=== PATIENT | female | born 1945 | race Caucasian/White ===

== ENCOUNTER 2017-06-05 09:56 | Day surgery (SDC) | payer MEDICARE, OTHER ==
[~2017-06-05 09:56] MED LIST: EPINEPHrine 1:10,000 1 MG/10 ML Syringe ONE; Lactated Ringers 1,000 ML IV SCH; Midazolam 1 MG/ML 2 ML SDV ONE; Propofol 200 MG/20 ML SDV ONE; Sodium Chloride 0.9% 5 ML Syringe FLUSH PRN
[2017-06-05] MEDS ORDERED: Propofol 200 MG/20 ML SDV ONE (10:19)
[2017-06-05] MEDS ORDERED: Midazolam 1 MG/ML 2 ML SDV IV ONE (10:53)
[2017-06-05] MEDS ORDERED: Propofol 200 MG/20 ML SDV IV ONE (10:53)
--- NOTE | 2017-06-05 11:29 | PCM.OPNOTE ---
- General Post-Op/Procedure Note Date of Surgery/Procedure: 06/05/17 Operative Procedure(s): Colonoscopy Findings: Long tortuous colon but negative colonoscopy. Pre Op Diagnosis: Rectal bleeding, abdominal pain and constipation Anesthesia Technique: MAC Primary Surgeon: Suzanna Londono Complications: None Condition: Good Free Text/Narrative:: INFORMED CONSENT: Patient is here today for elective colonoscopy. All aspects of this procedure have been discussed with the patient. All possible complications also, including possibility of perforation, infection, pain, bleeding and unknown complications. In the event of perforation patient may need to have abdominal exploration, colon resection, colostomy and even was discussed. Anesthetic complications were handled by anesthesia department. The patient understands fully well. Patient did not have any further questions for me at the end of my interview. The patient wishes for me to proceed. PREOPERATIVE DIAGNOSIS/INDICATIONS: [rectal bleeding, constipation and abdominal pain] POSTOPERATIVE DIAGNOSIS: [long tortuous colon, sigmoid colon diverticulosis, otherwise negative.] INSTRUMENT USED: Olympus videocolonoscope. ASA CLASSIFICATION: [2] ANESTHESIA: Continuous EKG, oximetry and intermittent blood pressure and respiratory monitoring were performed throughout the procedure. IV Versed and Fentanyl were administered. PROCEDURE PERFORMED: Colonoscopy POSITIONS OF PATIENT: Left lateral. RECTUM: Normal. SIGMOID COLON: Multiple diverticula cystoscopy is observed. DESCENDING COLON: Normal. SPLENIC FLEXURE: Normal. TRANSVERSE COLON: Long tortuous.. HEPATIC FLEXURE: Normal. ASCENDING COLON: Normal. CECUM: Normal. ILEOCECAL VALVE: Normal. BIOPSY: None. TOLERANCE: Excellent. COMPLICATIONS: None.
[2017-06-05 13:11] VITALS: BP 151/81
== END 2017-06-05 13:00 | disposition home or self-care (01) ==
LOC: KA.SDS 09:56
PROVIDERS: ATTEND Family Medicine
DX: K57.30 Diverticulosis of large intestine without perforation or abscess without bleeding (principal)
CPT/HCPCS: 45378; J2250; J2704; J7120; 00810

== ENCOUNTER 2017-07-31 19:15 | Emergency (ER) | payer MEDICARE, OTHER ==
[2017-07-31] MEDS ORDERED: Ondansetron 4 MG/2 ML SDV IVPUSH ONE (19:17)
[2017-07-31] MEDS ORDERED: HYDROmorphone 1 MG/ML Syringe IVPUSH ONE ×2 (19:17→19:33)
[2017-07-31] MEDS ORDERED: Sodium Chloride 0.9% 5 ML Syringe FLUSH PRN (19:17)
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
[2017-07-31] MEDS ORDERED: Iopamidol 612 MG/ML 75 ML Bottle IV ONE (20:09)
[2017-07-31] MEDS ORDERED: Sodium Chloride 0.9% 50 ML SDV FLUSH SCH (20:15)
[2017-07-31] MEDS ORDERED: Sodium Chloride 0.9% 1,000 ML IV ONE (20:22)
[2017-07-31 22:40] VITALS: BP 135/74
== END 2017-07-31 21:35 ==
LOC: KA.ED 19:15
DX: K56.609 Unspecified intestinal obstruction, unspecified as to partial versus complete obstruction (principal); I10 Essential (primary) hypertension; J44.9 Chronic obstructive pulmonary disease, unspecified; F32.9 Major depressive disorder, single episode, unspecified; Z98.890 Other specified postprocedural states; Z87.891 Personal history of nicotine dependence; Z79.82 Long term (current) use of aspirin; Z79.899 Other long term (current) drug therapy
CPT/HCPCS: 36415; 74177; 80053; 81001; 83690; 85025; 96361; 96374; 96375; 99285; J1170; J2405; J7030; Q9967; 93005